=== PATIENT | male | born 1995 | race Caucasian/White ===

== ENCOUNTER 2022-02-01 18:34 | Emergency (ER) | payer OTHER, SELFPAY ==
--- NOTE | ~2022-02-01 | XR_ITS ---
EXAM: XR toe 1st LT min 2V DATE: 02/01/2022 18:56 HISTORY: INJURY TO 1ST DIGIT ON LT FOOT . COMPARISON: None available. FINDINGS: Normal mineralization. Nondisplaced posterior and posterior lateral corner fracture of the proximal aspect of the first distal phalanx, with minimal intra-articular extension. No lytic or joseluis stic lesion. Joint spaces and physes are maintained. No erosion or periosteal change. Soft tissues wi thin normal limits. IMPRESSION: Nondisplaced posterior and posterior lateral corner fracture of the proximal aspect of th e left first distal phalanx. Reviewed, dictated and finalized at location [facility]. IMPRESSION: Nondisplaced posterior and posterior lateral corner fracture of the proximal aspect of the left first distal phalanx.
--- NOTE | 2022-02-01 18:36 | ED.EXTPRO ---
HPI - Extremity Problem General Stated complaint: Left Foot Big Toe Pain Time Seen by Provider: 02/01/22 18:36 Source: patient Mode of arrival: ambulatory Limitations: no limitations History of Present Illness HPI Narrative: blkelvin to maker is a 26-year-old male patient presenting to the clinic today with complaints of left great toe pain. He reports he was dancing last night and fell and hyperextended his great toe and 2nd toe. He has bruising and swelling to these great toe and pain with walking. States he has been walking on the side of his foot today. Reports a lot of the pain and swelling has subsided however he would like to see if it is fractured Related Data Home Medications Medication Instructions Recorded Confirmed No Home Medications 02/01/22 02/01/22 Allergies Allergy/AdvReac Type Severity Reaction Status Date / Time No Known Allergies Allergy Verified 02/01/22 19:01 Review of Systems Review of Systems: Pertinent positives per HPI. Patient denies any fever, chills, rash, headache, visual changes, dizziness, cough, runny nose, sore throat, shortness of breath, chest pain, palpitations, nausea, vomiting, diarrhea, constipation, abdominal pain, or any urinary issues. PMFSH Comments At the time of my signature, I reviewed and agree with the nursing past medical, surgical, social, and family history. There is no relevant family history pertinent to the patient complaint. Exam Narrative: General: Well-developed, well nourished, in no apparent distress Head: Normocephalic, atraumatic. Cardio: Regular rate and rhythm, s1 and s2 normal, no murmur appreciated. Resp: Clear to auscultation bilaterally, no rhonchi, rales, wheezing or rubs. Musculoskeletal: No deformity, tender to palpation of the pip joint, bruising and swelling noted over the pip joint, mild discomfort with flexion and extension of the left great toe, grossly normal range of motion, muscle strength strong and equal, peripheral pulse strong, no cyanosis, normal gait and station Course Course Emergency Course: Portions of this record may have been created with voice recognition software. Level of Care: Express Care Visit Vital Signs Vital signs: Vital signs reviewed MDM - Extremity (Nontraumatic) MDM Narrative Medical decision making narrative: At the time of visit patient is resting comfortably on the exam table. x-ray shows fracture of the left great toe. Place patient on postop shoe and supportive measures were discussed with the patient he voiced understanding discharge instructions and agrees to treatment plan. Imaging Data Radiologist's impression: [facility] [address] [place] [address] XRay Report Signed Patient: Drake Graham : 1995 MR#: [id number] Age/Sex: 26 / M Acct:[id number] Loc: [facility]? ? ADM Date: 02/01/22Attending Dr: Ordering Physician: José Miguel Jones APRN Date of Service: 02/01/22 Procedure(s): XR toe 1st LT min 2V Accession Number(s): [id number] cc: José Miguel Jones APRN; [employer] PHYSICIAN~ EXAM:? XR toe 1st LT min 2V DATE: 02/01/2022 18:56 HISTORY: INJURY TO 1ST DIGIT ON LT FOOT . COMPARISON:? None available. FINDINGS:? Normal mineralization. Nondisplaced posterior and posterior lateral corner fracture of the proximal aspect of the first distal phalanx, with minimal intra-articular extension. No lytic or blastic lesion. Joint spaces and physes are maintained. No erosion or periosteal change. Soft tissues within normal limits. IMPRESSION: Nondisplaced posterior and posterior lateral corner fracture of the proximal aspect of the left first distal phalanx. Reviewed, dictated and finalized at [facility]. Dictated By:? Vinicius Raza MD? 02/01/22 [id number] Signed By:? ? <Hilda
[2022-02-01 18:46] VITALS: BP 172/94; PULSE 74; RESP 16; TEMP 36.8; O2SAT 100
== END 2022-02-01 19:20 | disposition home or self-care (01) ==
PROVIDERS: Emergency Provider Nurse Practitioner Family
DX: S92.415A Nondisplaced fracture of proximal phalanx of left great toe, initial encounter for closed fracture (principal); W19.XXXA Unspecified fall, initial encounter; Y93.41 Activity, dancing; Y92.9 Unspecified place or not applicable
CPT/HCPCS: 73660; 99204; G0463